=== PATIENT | male | born 1990 | race Caucasian/White ===

== ENCOUNTER 2019-05-04 11:36 | Emergency (ER) | payer OTHER ==
[~2019-05-04] VITALS: Ht 193 cm; Wt 99.8 kg
[2019-05-04] MEDS ORDERED: IBUPROFEN 600600 M1 PO (11:57)
[2019-05-04] MEDS ORDERED: BENADRYL25 MG PO (11:58)
[2019-05-04 12:46] LABS: ABSOLUTE LYMPHOCYTES 1.3 thou/uL (0.8-5.3); ABSOLUTE MONOCYTES 0.3 thou/uL (0.0-1.2); ABSOLUTE NEUTROPHILS 5.2 thou/uL (1.6-8.1); BASOPHILS 0.2 %; EOSINOPHILS 0.2 %; HEMATOCRIT 44.3 % (42.0-52.0); HEMOGLOBIN 14.9 gm/dL (14.0-18.0); LYMPHOCYTES 18.7 %; MCH 29.9 pg (26.0-34.0); MCHC 33.6 g/dL (28.0-37.0); MCV 89.1 fL (80.0-100.0); MONOCYTES 4.6 %; MPV 9.1 fl. (7.2-11.1); NUCLEATED RBCS 0 /100WBC; PLATELET COUNT* 173 thou/uL (150-400); POLYS 76.3 %; RBC 4.97 mil/uL (4.50-6.00); RDW-CV 13.7 % (10.5-14.5); WBC 6.8 thou/uL (4.0-11.0)
[2019-05-04 12:54] LABS: ANION GAP 11 mmol/L (7-16); BUN 15 mg/dL (7-18); CALCIUM 8.9 mg/dL (8.5-10.1); CHLORIDE 102 mmol/L (98-107); CO2 25 mmol/L (21-32); CREATININE 0.6 mg/dL (0.6-1.3); GLUCOSE 97 mg/dL (70-99); POTASSIUM 3.6 mmol/L (3.5-5.1); SODIUM 138 mmol/L (136-145)
[2019-05-04 12:55] LABS: URINE BILIRUBIN NEGATIVE (Negative); URINE BLOOD NEGATIVE (Negative); URINE CLARITY CLEAR; URINE COLOR YELLOW; URINE GLUCOSE-RANDOM NEGATIVE (Negative); URINE KETONES 1+ (Negative); URINE LEUKOCYTES-REFLEX NEGATIVE (Negative); URINE NITRITE-REFLEX NEGATIVE (Negative); URINE PROTEIN NEGATIVE (Negative); URINE SPECIFIC GRAVITY <= 1.005 (1.005-1.030); URINE UROBILINOGEN 0.2 E.U./dl (0.2-1.0)
[2019-05-04 13:02] LABS: AMP/METHAMP Negative (Negative); BARBITURATES Negative (Negative); BENZODIAZEPINES Negative (Negative); COCAINE Negative (Negative); METHADONE Negative (Negative); OPIATES Negative (Negative); PCP Negative (Negative); THC POSITIVE (Negative)
[2019-05-04 13:03] LABS: ALBUMIN 4.1 g/dL (3.4-5.0); ALKALINE PHOSPHATASE 78 U/L (46-116); SGOT 16 U/L (15-37); SGPT 23 U/L (30-65); TOTAL BILIRUBIN 0.5 mg/dL (<0.1-1.0); TOTAL PROTEIN 7.6 g/dL (6.4-8.2); TROPONIN-I LEVEL <0.06 ng/mL (<0.06)
[2019-05-04 14:01] VITALS: BP 142/84
--- NOTE | 2019-05-06 13:49 | EKG ---
[place] [address] ELECTROCARDIOGRAM REPORT Name: SCOUT BONDS Room: [facility]#: [id number] Admission: 05/04/19 Attend Phys: Discharge: 05/04/19 Date of : 86 Report #: [id number] THIS REPORT FOR: //name// [facility] ED Test Date: 2019-05-04 Test Time: 11:39:10 Pat Name: SCOUT BONDS Department: Room: Gender: M [employer] Hel[employer]: NAINA : 1990 Requested By: Grace Aggarwal Order Number: [id number] Owen MD: Perez Vera Measurements Intervals [place] Rate: 79 P: 42 MI: 114 QRS: 66 QRSD: 90 T: 54 QT: 369 QTc: 424 Interpretive Statements Sinus rhythm Borderline short MI interval ST elev, probable normal early repol pattern No previous ECG available for comparison Electronically Signed On 05-06-2019 13:49:15 CDT by Perez Vera [email or web address] <ELECTRONICALLY SIGNED> By: Perez Vera MD, [facility] 05/06/19 1349 [id number] [id number] Perez Vera MD, FACC /EPI
== END 2019-05-04 14:02 | disposition home or self-care (01) ==
LOC: M.ERS 11:36
PROVIDERS: Physician Assistant
DX: F41.0 Panic disorder [episodic paroxysmal anxiety] (principal); F10.230 Alcohol dependence with withdrawal, uncomplicated; Y90.9 Presence of alcohol in blood, level not specified; G89.29 Other chronic pain; F17.210 Nicotine dependence, cigarettes, uncomplicated; Z88.8 Allergy status to other drugs, medicaments and biological substances; Z79.899 Other long term (current) drug therapy